=== PATIENT | female | born 1955 | race Caucasian/White ===

== ENCOUNTER 2016-10-05 11:24 | Emergency (ER) | payer OTHER ==
--- NOTE | 2016-10-05 14:31 | RAD ---
HISTORY: Shortness of breath COMPARISONS: None VIEWS: 2: Frontal dual-energy and lateral views of the chest. FINDINGS: CARDIOMEDIASTINAL SILHOUETTE: The cardiomediastinal silhouette is normal. PITA: The pita are normal. PLEURA: The costophrenic angles are sharp. No pleural abnormalities are noted. LUNG PARENCHYMA: There is hyperinflation with flattening of the diaphragm and expansion of the retrosternal airspace. ABDOMEN: The upper abdomen is clear. There is no subphrenic gas. BONES AND SOFT TISSUES: No bone or soft tissue abnormalities are noted. OTHER: None. IMPRESSION: HYPERINFLATION. NO ACTIVE CARDIOPULMONARY DISEASE.
[2016-10-05] MEDS ORDERED: Aspirin Low Dose CHEW TAB* 81 MG PO ONE (16:06)
[2016-10-05 17:41] LABS: Hematocrit 43 % (35-47); Hemoglobin 14.1 g/dl (12.0-16.0); Mean Corpuscular HGB Conc 33 g/dl (31-36); Mean Corpuscular Hemoglobin 30 pg (27-31); Mean Corpuscular Volume 89 fL (80-97); Mean Platelet Volume 8 um3 (7.4-10.4); Red Blood Count 4.77 10^6/ul (4.0-5.4); Red Cell Distribution Width 13 % (10.5-15); White Blood Count 6.9 10^3/ul (3.5-10.8)
[2016-10-05] MEDS ORDERED: Acetaminophen TAB* 325 MG PO ONE (17:57)
[2016-10-05 17:59] LABS: Albumin 4.3 g/dL (3.2-5.2); BUN/Creatinine Ratio 20.2 (8-20); Calcium 9.3 mg/dL (8.6-10.3); EGFR African American 88.1 (>60); EGFR Non-African American 68.5 (>60); Potassium 3.6 mmol/L (3.5-5.0); Total Bilirubin 0.5 mg/dL (0.2-1.0); Total Protein 7.3 g/dL (6.4-8.9)
[2016-10-05] MEDS ORDERED: Nitroglycerin TAB 0.4 MG* 0.4 MG TAB SL ONE (18:28)
[2016-10-05] MEDS ORDERED: Iohexol 350* (CONTRAST) 500 ML MDV IV ONE (18:53)
--- NOTE | 2016-10-05 19:23 | RAD ---
INDICATION: Chest pain. Short of breath. Evaluate for pulmonary embolus. COMPARISON: Chest x-ray October 05, 2016 TECHNIQUE: Axial source images were obtained from the thoracic inlet to the hemidiaphragms following administration of [address] angiographic technique was utilized. Coronal and sagittal reconstructed images were acquired. CHEST FINDINGS: Neck/thyroid: The visualized neck to include the thyroid appear normal. Chest wall: There are no acute abnormalities of the bony thorax or chest wall. There is no supraclavicular, infraclavicular, or axillary lymphadenopathy. Lungs : There are no pulmonary parenchymal masses or infiltrates. Mild bibasilar linear changes most consistent with atelectasis or scarring. The pulmonary interstitium appears prominent. There are no endobronchial lesions. Cardiomediastinal structures: There is no CT evidence of acute pulmonary embolic disease. The heart is normal in size. There is no pericardial effusion. There is no evidence of aortic aneurysm or dissection. There is no mediastinal or hilar adenopathy. The esophagus appears normal. Pleura : There are no pleural-based masses or effusions. There is mild biapical scarring Other: None. IMPRESSION: NO CT EVIDENCE OF ACUTE PULMONARY EMBOLIC DISEASE.
--- NOTE | 2016-10-05 21:15 | PN ---
Hospitalist Progress Note Went to see patient for admission and Pt would like to go home. Discussed with Pt about getting a repeat troponin prior to her discharge and she would like to leave now. ER charge nurse Iram and MARIO notified of patient's wish to leave at this time.
[2016-10-06 07:36] VITALS: BP 118/74
--- NOTE | 2016-11-02 10:26 | ED ---
Caden Chicas Matthew, scribed for Rufus Benitez MD on 10/05/16 at 1838 . HPI Chest Pain - HPI Summary HPI Summary: A 61 y/o female presents to the ED with left breast chest pain since a week ago , which worsened yesterday. The pain is rated 8 and radiates to the back. Her pain is worse with deep breaths. It partially alleviates when she remains still. Associated symptoms include SOB. The patient denies fever, chills, and pedal edema. No Hx of HTN. PMHx includes HLD. She has not had any recent travel or long periods of inactivity. Hx of COPD. The patient has a strong cardiac FHx. - History of Current Complaint Chief Complaint: EDShortnessOfBreath Time Seen by Provider: 10/05/16 16:05 Hx Obtained From: Patient Onset/Duration: Started Weeks Ago - 1, Atraumatic, Still Present Timing: Constant Initial Severity: Moderate Current Severity: Moderate Pain Intensity: 8 Pain Scale Used: 0-10 Numeric Chest Pain Location: Left Lateral - under the left breast Chest Pain Radiates: Yes Chest Pain Radiates To:: Back Aggravating Factor(s): Deep Breaths Alleviating Factor(s): Other: - Remaining still Associated Signs and Symptoms: Positive: Chest Pain, Shortness of Breath. Negative: Fever, Chills, Calf Pain/Swelling, Edema - pedal - Allergy/Home Medications Allergies/Adverse Reactions: Allergies Allergy/AdvReac Type Severity Reaction Status Date / Time No Known Allergies Allergy Verified 08/31/13 09:09 PMH/Surg Hx/FS Hx/Imm Hx Endocrine/Hematology History: Denies: Hx Diabetes Cardiovascular History: Reports: Hx Hypercholesterolemia Denies: Hx Congestive Heart Failure, Hx Hypertension Respiratory History: Reports: Hx Chronic Obstructive Pulmonary Disease (COPD) - Cancer History Hx Chemotherapy: No Hx Radiation Therapy: No - Surgical History Surgery Procedure, Year, and Place: hysterectomy,foot ganglion cyst, Infectious Disease History: No Infectious Disease History: Denies: Traveled Outside the [place] in Last 30 Days - Family History Known Family History: Positive: Cardiac Disease - FHx of stents; CABG; [place] - mother - Social History Alcohol Use: Rare Hx Substance Use: No Substance Use Type: Reports: None Hx Tobacco Use: No Smoking Status (MU): Former Smoker Review of Systems Constitutional: Negative Negative: Fever, Chills Eyes: Negative Negative: Erythema ENT: Negative Negative: Sore Throat Positive: Chest Pain Positive: Shortness Of Breath. Negative: Cough Gastrointestinal: Negative Negative: Abdominal Pain, Vomiting, Diarrhea, Nausea Genitourinary: Negative Negative: dysuria, hematuria Musculoskeletal: Negative Negative: Myalgia, Edema Skin: Negative Negative: Rash Neurological: Negative Negative: Headache Psychological: Normal All Other Systems Reviewed And Are Negative: Yes Physical Exam Triage Information Reviewed: Yes Vital Signs On Initial Exam: Initial Vitals Temp Pulse Resp BP Pulse Ox 97.6 F 79 18 139/81 99 10/05/16 11:25 10/05/16 11:25 10/05/16 11:25 10/05/16 11:25 10/05/16 11:25 Vital Signs Reviewed: Yes Appearance: Positive: Well-Appearing Skin: Positive: Warm, Dry Head/Face: Positive: Other - Normocephalic; Atraumatic Eyes: Positive: Conjunctiva Clear Dental: Negative: Cervical Lymphadenopathy Neck: Positive: No Lymphadenopathy, Other: - Full ROM; No JVD Respiratory/Lung Sounds: Positive: Other - Normal Effort; No respiratory distress. Negative: Rales, Stridor, Tracheal Deviation, Wheezes Cardiovascular: Positive: RRR, Other - Rhythm regular, rate normal, Heart sounds normal; Intact distal pulses; The pedal pulses are 2+ and symmetric. Radial pulses are 2+ and symmetric. Negative: Murmur Abdomen Description: Positive: Nontender, Soft, Other: - No Rebound. Negative: Distended, Guarding Bowel Sounds: Positive: Present Musculoskeletal: Negative: Edema Left, Edema Right Neurological: Positive: Alert, Oriented to Person Place, Time Psychiatric: Positive: Affect/Mood Appropriate - Kassy Coma Scale Coma Scale Total: 15 Diagnostics - Vital Signs Vital Signs Temp Pulse Resp BP Pulse Ox 10/05/16 17:39 98.2 F 69 16 113/74 95 10/05/16 17:31 73 20 96 10/05/16 17:30 113/74 10/05/16 16:20 98.3 F 72 16 116/72 100 10/05/16 15:12 98.2 F 73 22 114/72 100 10/05/16 14:05 98.5 F 77 18 140/73 100 10/05/16 12:38 98.1 F 72 20 120/73 99 10/05/16 11:25 97.6 F 79 18 139/81 99 - Laboratory Lab Results: Lab Results 10/05/16 10/05/16 10/05/16 Range/Units 17:30 17:30 17:30 WBC 6.9 (3.5-10.8) 10^3/ul RBC 4.77 (4.0-5.4) 10^6/ul Hgb 14.1 (12.0-16.0) g/dl Hct 43 (35-47) % MCV 89 (80-97) fL MCH 30 (27-31) pg MCHC 33 (31-36) g/dl RDW 13 (10.5-15) % Plt Count 297 (150-450) 10^3/ul MPV 8 (7.4-10.4) um3 Neut % (Auto) 52.8 (38-83) % Lymph % (Auto) 36.6 (25-47) % Norman % (Auto) 7.9 (1-9) % Eos % (Auto) 1.4 (0-6) % Baso % (Auto) 1.3 (0-2) % Absolute Neuts (auto) 3.6 (1.5-7.7) 10^3/ul Absolute Lymphs (auto) 2.5 (1.0-4.8) 10^3/ul Absolute Monos (auto) 0.5 (0-0.8) 10^3/ul Absolute Eos (auto) 0.1 (0-0.6) 10^3/ul Absolute Basos (auto) 0.1 (0-0.2) 10^3/ul Absolute Nucleated RBC 0.01 10^3/ul Nucleated RBC % 0.1 Sodium 138 (133-145) mmol/L Potassium 3.6 (3.5-5.0) mmol/L Chloride 106 (101-111) mmol/L Carbon Dioxide 24 (22-32) mmol/L Anion Gap 8 (2-11) mmol/L BUN 17 (6-24) mg/dL Creatinine 0.84 (0.51-0.95) mg/dL Est GFR ( Amer) 88.1 (>60) Est GFR (Non-Af Amer) 68.5 (>60) BUN/Creatinine Ratio 20.2 H (8-20) Glucose 90 (70-100) mg/dL Lactic Acid 0.9 (0.5-2.0) mmol/L Calcium 9.3 (8.6-10.3) mg/dL Total Bilirubin 0.50 (0.2-1.0) mg/dL AST 20 (13-39) U/L ALT 13 (7-52) U/L Alkaline Phosphatase 59 (34-104) U/L Troponin I 0.00 (<0.04) ng/mL Total Protein 7.3 (6.4-8.9) g/dL Albumin 4.3 (3.2-5.2) g/dL Globulin 3.0 (2-4) g/dL Albumin/Globulin Ratio 1.4 (1-3) Result Diagrams: 10/05/16 17:30 10/05/16 17:30 Lab Statement: Any lab studies that have been ordered have been reviewed, and results considered in the medical decision making process. - Radiology CXR Xray Interpretation: No Acute Changes - IMPRESSION: HYPERINFLATION. NO ACTIVE CARDIOPULMONARY DISEASE. Radiology Interpretation Completed By: Radiologist - CT CTA Chest CT Interpretation: No Acute Changes - IMPRESSION: NO CT EVIDENCE OF ACUTE PULMONARY EMBOLIC DISEASE. CT Interpretation Completed By: Radiologist - EKG 11:35 Cardiac Rate: NL - 72 bpm EKG Rhythm: Sinus Rhythm EKG Interpretation: No STEMI Chest Pain Course/Dx - Course Assessment/Plan: A 61 y/o female presents to the ED with left breast chest pain since a week ago, which worsened yesterday. The pain is rated __ and radiates to the back. Her pain is worse with deep breaths. It partially alleviates when she remains still. Associated symptoms include SOB. The patient denies fever, chills, and pedal edema. No Hx of HTN. PMHx includes HLD. She has not had any recent travel or long periods of inactivity. Hx of COPD. The patient has a strong cardiac FHx. Labs were reviewed and first troponin was 0.00. In the ED course, the patient was given Tylenol, aspirin, and nitroglycerin. CXR showed no acute cardiopulmonary disease. CTA Chest was negative for PE. EKG shows NSR at 72 bpm with no STEMI. Discussed the case with Dr. Garcia who will admit the patient into his services for further cardiac work up. - Chest Pain Differential Diagnosis/HQI/PQRI: Aortic Aneurysm - Diagnoses Provider Diagnoses: Pleuritic chest pain - Provider Notifications Discussed Care Of Patient With: Dr. Garcia (Hospitalist) at 19:44 -- Notified of paitent's history and will admit the patient. Discharge - Discharge Plan Condition: Stable Disposition: ADMITTED TO [facility] Discharge Disposition Comment: The patient is signed out to Dr. Andrew pending CTA. Referrals: Nikita Potter MD [Primary Care Provider] - The documentation as recorded by the Caden lara Matthew accurately reflects the service I personally performed and the decisions made by , Rufus Benitez MD.
== END 2016-10-05 22:20 | disposition short-term general hospital (02) ==
LOC: ED 11:24
DX: R07.89 Other chest pain (principal); R06.02 Shortness of breath
CPT/HCPCS: 36415; 71020; 71275; 80053; 83605; 84484; 85025; 93005; 99282; A9270-GY; Q9967

== ENCOUNTER 2019-04-08 19:05 | Emergency (ER) | payer MEDICARE, OTHER ==
--- OUTSIDE RECORDS SUMMARY | 2019-04-08 19:51 | XMS REPORT | Continuity of Care Document ---
:1955 External Reference #:[id number] Author Name Nikita Potter M.D. Address [address] [place] [address] Care Team Providers Name Role Phone HCP given Care Team Information Formal Waiter/Waitress Unavailable [facility] - Care Team Information Formal Waiter/Waitress [phone] Gastroenterology Problems Active Problems Provider Date Chronic obstructive lung disease Nikita Potter M.D. Onset: 03/17/2010 Pure hypercholesterolemia Nikita Potter M.D. Onset: 11/04/2010 Social History Type Date Description Comments Sex Unknown Tobacco Use Start: Unknown End: Former Cigarette Smoker quit November 2003; Unknown started as a teenager previously smoked 1.5ppd 10-15yrs, ~1ppd for ~20yrs Tobacco Use Start: Unknown End: Patient is a former Unknown smoker Smoking Status Reviewed: 11/25/18 Patient is a former smoker Exercise Exercises regularly walks and hikes, lots Type/Frequency of yard and garden work Allergies, Adverse Reactions, Alerts Description No Known Drug Allergies Medications Active Medications SIG Qnty Indications Ordering Date Provider Gabapentin 1 pill tonight then 30caps M79.651 Abbey, 03/02/2019 300mg 1 pill twice daily Rossy Shelton Capsules for 1 day then 1 pill 3x/day; for right leg pain Rosuvastatin take one tablet by 90tabs Abbey, 12/14/2018 Calcium mouth every day to Rossy Shelton 5mg Tablets lower choloesterol and reduce risk of heart disease Azelastine HCL instill one drop 6units H10.45 Abbey, 05/15/2017 (Ophthalmic) into affected eye Rossy Shelton 0.05% two times a day as Solution needed, space doses at least 6 hours apart; for eye allergies Proventil HFA 2 puffs every 4 3units J44.9 Silcoff, 02/21/2016 hours as needed for Rossy Shelton 108(90Base) mcg/Act cough, wheezing, Aerosol sob Advair Diskus Use One Inhalation 180units J44.9 Silcoff, 04/15/2012 Two Times A Day; Rossy Shelton 250-50mcg/Dose Gargle After Use Aerosol Zyrtec Allergy 1 by mouth every 477.9 Silcoff, 01/20/2012 10mg day as needed for Rossy Shelton Tablets allergies Spiriva Handihaler Inhale The Contents 90caps J44.9 Silcoff, 09/12/2009 Of 1 Capsule Daily Rossy Shelton 18mcg Capsules For Chronic Obstructive Pulmonary Disease Medications Administered in Office Medication SIG Qnty Indications Ordering Provider Date SC/Im Injections Talisha Dwyer 03/08/2017 Injection H1N1 Swine Flu Vaccine Nikita Potter M.D. 09/13/2009 Injection Immunizations CPT Code Status Date Vaccine Lot # [id number] Given 02/26/2019 Influenza Vaccine, Inactivated, Subunit, [id number] Adjuvanted, For Intrmus 78495 Given 11/25/2018 Pneumococcal Immunization [id number] 93672 Given 03/11/2018 Influenza Virus Vaccine, Quadrivalent, Split, [id number] Preservative Free 95664 Given 09/25/2017 Prevnar 13 [id number] 33451 Given 03/01/2017 Influenza Virus Vaccine, Quadrivalent, Split, [id number] Preservative Free 23854 Given 02/21/2016 Influenza Virus Vaccine, Quadrivalent, Split, [id number] Preservative Free 84488 Given 03/17/2015 Flu, Split Virus 3Yrs 50239 Given 04/16/2014 Flu, Split Virus 3Yrs [id number] 32335 Given 03/25/2013 Flu, Split Virus 3Yrs [id number] 21399 Given 02/26/2012 Flu, Split Virus 3Yrs [id number] 58420 Given 03/27/2011 Flu, Split Virus 3Yrs [id number] 44332 Given 04/12/2010 Flu, Split Virus 3Yrs [id number] 93767 Given 03/17/2010 Adacel or Boostrix, TDaP [id number] Refused 01/05/2014 Zostavax Vital Signs Date Vital Result Comment 03/02/2019 4:14pm BP Systolic 114 mmHg BP Diastolic 70 mmHg Weight 151.00 lb 11/25/2018 9:07am BP Systolic 124 mmHg BP Diastolic 80 mmHg Height 67.25 inches 5'7.25" Weight 153.00 lb BMI (Body Mass Index) 23.8 kg/m2 Results Test Date Facility Test Result H/L Range Note Xray 03/02/2019 [facility] X-Ray, Femur, 2 <pending> Views, RT Lipid Profile 11/25/2018 [facility] Triglycerides 83 mg/dL 1 (Trig/Chol/HDL [phone] ) Cholesterol 301 mg/dL 2 HDL Cholesterol 60.1 mg/dL 3 LDL Cholesterol 224 mg/dL 4 Laboratory test finding 11/25/2018 [facility] Alt (SGPT) 14 U/L Normal 7-52 [phone] 1 Desirable: <150 Borderline High: 150-199 High: 200-499 Very High: >500 2 Desirable: <200 Borderline High: 200-239 High: >239 3 Low: <40 Desirable: 40-60 High: >60 4 Desirable: <100 Near Optimal: 100-129 Borderline High: 130-159 High: 160-189 Very High: >189 Procedures Date Code Description Status 03/02/2019 85228 Radiologic Exam Femur Minimum 2 Views Completed 12/01/2018 [id number] Mammogram Completed 11/25/2018 49746 Electrocardiogram Complete Completed 09/15/2013 42930122 Colonoscopy Completed Medical Devices Description No Information Available Encounters Type Date Location Provider Dx Diagnosis Office Visit 03/02/2019 Main Office Nikita Potter M79.651 Pain in right thigh 4:00p M.DBrodie Assessments Date Code Description Provider 03/02/2019 M79.651 Pain in right thigh Nikita Potter M.D. 02/26/2019 Z23 Encounter for immunization Nurse's Schedule 11/25/2018 Z00.00 Encounter for general adult medical Nikita Potter M.D. examination without abno 11/25/2018 Z23 Encounter for immunization Nikita Potter M.D. 11/25/2018 Z12.39 Encounter for other screening for malignant Nikita Potter M.D. neoplasm of chadd 11/25/2018 Z12.31 Encounter for screening mammogram for Nikita Potter M.D. malignant neoplasm of 11/25/2018 G47.62 Sleep related leg cramps Nikita Potter M.D. 11/25/2018 E78.00 Pure hypercholesterolemia, unspecified Nikita Potter M.D. 11/25/2018 Z41.8 Encounter for other procedures for purposes Nikita Potter M.D. other than remed 11/25/2018 Z68.23 Body mass index (BMI) 23.0-23.9, adult Nikita Potter M.D. Plan of Treatment Future Appointment(s):11/27/2019 3:30 pm - Nikita Potter M.D. at Main [id number]/08/2017 - Talisha DwyerJ01.90 Acute sinusitis, unspecifiedNew Medication:Amoxicillin/Clavulanate Potassium 875-125 mg - 1 twice a day x 10 daysFollow up:Wait 10-20 minutes before leaving to make sure no reaction to the injection. try not to blow noseinstead sniffing is better to clear your nose steam yourself well in showers and using a vaporizer in bedroom also; use a saline nose spray to help mucous ( you can buy over the counter) or make up oneyourself by mixing 1/4 tsp salt in 1 cup warm water putting in a sprayer ; should start to clear with less pain/congestion in three days see us if needed for failure to improve after 10 -14days use a vaporizer in your bedroom until this clears up Functional Status Description No Information Available Mental Status Description No Information Available Referrals Description No Information Available
[2019-04-08 19:54] VITALS: BP 129/82
[2019-04-08] MEDS ORDERED: DOXYcycline CAP(*) 100 MG PO ONE (20:34)
--- NOTE | 2019-04-08 20:37 | UC ---
Bite Injury/Animal HPI - HPI Summary HPI Summary: 63-year-old woman comes in with chief complaint of a tick bite on left lateral chest. Found it just prior to arriva. her pulled it off. Tick was still walking around after it was pulled off. The area is tender. No bull's- eye rash so fevers no chills feels well otherwise. She's not sure how long it was attached. - History of Current Complaint Chief Complaint: UCSkin Stated Complaint: TICK BITE Time Seen by Provider: 04/08/19 20:25 Pain Intensity: 3 - Allergies/Home Medications Allergies/Adverse Reactions: Allergies Allergy/AdvReac Type Severity Reaction Status Date / Time No Known Allergies Allergy Verified 04/08/19 19:55 Home Medications: Home Medications Rosuvastatin Calcium [Crestor] 04/08/19 [History] PMH/Surg Hx/FS Hx/Imm Hx Previously Healthy: Yes Respiratory History: COPD - Surgical History Surgical History: Yes Surgery Procedure, Year, and Place: hysterectomy,foot ganglion cyst - Family History Known Family History: Positive: None, Cardiac Disease - FHx of stents; CABG; [place] - mother - Social History Alcohol Use: None Substance Use Type: None Smoking Status (MU): Former Smoker Review of Systems All Other Systems Reviewed And Are Negative: Yes Constitutional: Positive: Negative Skin: Positive: Other - see hpi Eyes: Positive: Negative ENT: Positive: Negative Respiratory: Positive: Negative Cardiovascular: Positive: Negative Gastrointestinal: Positive: Negative Motor: Positive: Negative Neurovascular: Positive: Negative Musculoskeletal: Positive: Negative Neurological: Positive: Negative Psychological: Positive: Negative Is Patient Immunocompromised?: No Physical Exam Triage Information Reviewed: Yes Appearance: Well-Appearing, No Pain Distress, Well-Nourished Vital Signs: Initial Vital Signs Temp 98.4 F 04/08/19 19:50 Pulse 93 04/08/19 19:50 Resp 16 04/08/19 19:50 BP 129/82 04/08/19 19:50 Pulse Ox 94 04/08/19 19:50 Vital Signs Reviewed: Yes Eye Exam: Normal Eyes: Positive: Conjunctiva Clear Neck: Positive: Supple Respiratory: Positive: No respiratory distress Musculoskeletal: Positive: Strength Intact, ROM Intact Neurological: Positive: Alert, Muscle Tone Normal Psychological: Positive: Age Appropriate Behavior Skin: Positive: Other - On the left lateral chest wall there is a 1 cm area of dark erythema. I do not see any foreign body. No bull's-eye rash. Bite Injury Course/Dx - Differential Dx/Diagnosis Provider Diagnosis: Tick bite of chest wall Discharge ED - Sign-Out/Discharge Documenting (check all that apply): Patient Departure All imaging exams completed and their final reports reviewed: No Studies - Discharge Plan Condition: Stable Disposition: HOME Patient Education Materials: Tick Bite (ED) Referrals: Nikita Potter MD [Primary Care Provider] - Additional Instructions: FOLLOW UP WITH YOUR DOCTOR IF NOT COMPLETELY IMPROVED. GET RECHECKED SOONER IF YOUR CONDITION WORSENS; BULLS EYE RASH, SYMPTOMS OF LYME DISEASE OR ANY QUESTIONS OR CONCERNS. - Billing Disposition and Condition Condition: STABLE Disposition: Home
== END 2019-04-08 20:48 | disposition home or self-care (01) ==
LOC: UCEAST 19:05
DX: S20.362A Insect bite (nonvenomous) of left front wall of thorax, initial encounter (principal); W57.XXXA Bitten or stung by nonvenomous insect and other nonvenomous arthropods, initial encounter; Y92.9 Unspecified place or not applicable; Z87.891 Personal history of nicotine dependence
CPT/HCPCS: 99212; A9270-GY; G0463